=== PATIENT | male | born 1965 | race Hispanic/Latino ===

== ENCOUNTER 2021-03-08 03:06 | Emergency (ER) | payer OTHER ==
[2021-03-08] MEDS ORDERED: MELO7.5T12 PO (04:03)
[2021-03-08] MEDS ORDERED: CYCL-309 PO (04:03)
== END 2021-03-08 04:19 | disposition home or self-care (01) ==
LOC: EDH 03:06
DX: Z04.1 Encounter for examination and observation following transport accident (principal); Z79.1 Long term (current) use of non-steroidal anti-inflammatories (NSAID); V49.49XA Driver injured in collision with other motor vehicles in traffic accident, initial encounter; Y93.89 Activity, other specified; Y92.89 Other specified places as the place of occurrence of the external cause; Y99.8 Other external cause status

== ENCOUNTER 2023-11-06 04:43 | Emergency (ER) | payer BC ==
[~2023-11-06] VITALS: Ht 172.7 cm; Wt 95.3 kg
[~2023-11-06 04:43] MED LIST: ASPI-1005 PO; ATOR40TA69 PO; CLOP75TA32 PO; CYCL-309 PO; FURO20TA4 PO; LISI10TA24 PO; MELO7.5T12 PO; METO25 PO; POTA-364 PO
[2023-11-06] MEDS: LACTATED RINGERS 1000ML 1,368 ML IV ONE (05:25)
[2023-11-06] MEDS: MORPHINE 4 MG SYG IVP ONE (05:26)
[2023-11-06 05:29] LABS: BASOPHILS # (AUTO) 0.04 K/uL (0.00-0.20); BASOPHILS % (AUTO) 0.4 % (0.0-5.0); EOSINOPHILS # (AUTO) 0.09 K/uL (0.00-0.70); EOSINOPHILS % (AUTO) 0.9 % (0.0-8.0); HEMATOCRIT 46.6 % (42-54); IMMATURE GRANULOCYTE ABSOLUTE 0.05 K/uL (0-1); LYMPHOCYTES # (AUTO) 2.2 K/uL (1.0-4.8); LYMPHOCYTES % (AUTO) 23.1 % (21.0-51.0); MEAN CORPUSCULAR HEMOGLOBIN 33.2 pg (27.0-33.0); MEAN CORPUSCULAR HGB CONC 33.7 g/dL (32.0-36.0); MEAN CORPUSCULAR VOLUME 98.5 fL (79-99); MONOCYTES # (AUTO) 0.8 K/uL (0.1-1.0); MONOCYTES % (AUTO) 7.7 % (3.0-13.0); NEUTROPHILS # (AUTO) 6.5 K/uL (1.8-7.7); NEUTROPHILS % (AUTO) 67.4 % (40.0-77.0); PLATELET COUNT (AUTO) 190 K/uL (130-400); RED BLOOD CELL COUNT(AUTO) 4.73 MIL/uL (4.50-6.20); RED CELL DISTRIBUTION WIDTH 12.6 % (11.0-15.5); WHITE BLOOD COUNT (AUTO) 9.7 K/uL (4.8-10.8)
[2023-11-06] MEDS: ONDANSETRON 4MG INJ IVP ONE (05:29)
[2023-11-06 05:36] LABS: CREATININE 0.9 mg/dL (0.5-1.3); POTASSIUM 3.6 mmol/L (3.5-5.1)
[2023-11-06 05:41] LABS: ALBUMIN 3.7 g/dL (3.5-5.0); BILIRUBIN,TOTAL 0.4 mg/dL (0.2-1.0); TOTAL PROTEIN, SERUM 7.3 g/dL (6.0-8.3)
[2023-11-06] MEDS: HYDROMORPHONE 0.5 MG SYG (0.5MG/0.5ML) IVP ONE (05:49)
[2023-11-06] MEDS ORDERED: IOHEXOL-350 75 ML VIAL IV ONE (05:57)
[2023-11-06] MEDS: TAMSULOSIN HCL 0.4 MG CAP.ER.24H PO ONE (07:15)
[2023-11-06 08:16] LABS: APPEARANCE,URINE CLEAR (CLEAR); BILIRUBIN,URINE NEGATIVE (NEGATIVE); COLOR,URINE LIGHT-YELLOW (YELLOW); GLUCOSE, URINE (UA) >=1000 mg/dL (NEGATIVE); KETONES,URINE 5 mg/dL (NEGATIVE); LEUKOCYTE ESTERASE ,URINE NEGATIVE Leu/uL (NEGATIVE); NITRATE,URINE NEGATIVE (NEGATIVE); OCCULT BLOOD,URINE LARGE (NEGATIVE); PROTEIN,URINE NEGATIVE (NEGATIVE); UROBILINOGEN,URINE 0.2 mg/dL (0.2-1.0)
[2023-11-06 08:18] LABS: ADD UA MICROSCOPIC YES
[2023-11-06 08:23] LABS: MUCUS,URINE RARE LPF (None Seen)
[2023-11-06] MEDS ORDERED: TAMSULOSIN HCL 0.4 MG CAP.ER.24H PO ONE (08:30)
[2023-11-06] MEDS ORDERED: ONDA-243 SL (09:13)
[2023-11-06] MEDS ORDERED: TAMS-1 PO (09:13)
[2023-11-06] MEDS ORDERED: IBUP-2070 PO (09:13)
[2023-11-06 09:14] VITALS: BP 102/44; PULSE 55; RESP 16; O2SAT 98
== END 2023-11-06 09:30 | disposition home or self-care (01) ==
LOC: EDH 04:43
DX: N20.1 Calculus of ureter (principal); I25.10 Atherosclerotic heart disease of native coronary artery without angina pectoris; I10 Essential (primary) hypertension; E78.5 Hyperlipidemia, unspecified; E66.01 Morbid (severe) obesity due to excess calories; E11.9 Type 2 diabetes mellitus without complications; Z79.899 Other long term (current) drug therapy; Z79.82 Long term (current) use of aspirin; Z68.30 Body mass index [BMI] 30.0-30.9, adult
CPT/HCPCS: 99284; 74177; 96374; 96375; 96361; 82550; 84484; 80053; 83690; 85025; 81001; 36415; 93005; J7120; J2405; J2270; Q9967; J1170